=== PATIENT | female | born 1990 ===

== ENCOUNTER 2020-12-05 23:35 | Emergency (ER) | payer SELFPAY ==
[~2020-12-05] VITALS: Ht 165.1 cm; Wt 81.3 kg
[2020-12-06 00:43] VITALS: BP 126/79
== END 2020-12-06 02:08 | disposition home or self-care (01) ==
LOC: ED 12-06 01:33
DX: R51.9 Headache, unspecified (principal); H92.01 Otalgia, right ear; R42 Dizziness and giddiness; F17.200 Nicotine dependence, unspecified, uncomplicated
CPT/HCPCS: 70480; 99284